=== PATIENT | male | born 1980 | race Hispanic/Latino ===

== ENCOUNTER 2018-06-10 15:51 | Emergency (ER) | payer BC ==
[~2018-06-10] VITALS: Ht 167.6 cm; Wt 111.1 kg
[2018-06-10] MEDS ORDERED: ALBUTEROL/IPRATROPIUM 3 ML NEB NEB ONE (16:15)
[2018-06-10] MEDS ORDERED: PREDNISONE 20 MG TAB PO NR (16:15)
--- NOTE | 2018-06-10 17:12 | Diagnostic Imaging Report ---
Frontal and lateral views of the chest. HISTORY: Cough, high blood pressure COMPARISON: None available. DISCUSSION: Lungs: Low lung volumes result in bibasilar vascular crowding, accentuation of the pulmonary interstitial markings, central pulmonary vasculature, and the cardiac silhouette. Allowing for these limitations, the findings are as follows: Increased peribronchial interstitial markings. No evidence of a consolidative pneumonia or pulmonary alveolar edema. Pleura: No pleural effusion or pneumothorax. Heart and mediastinum: The cardiomediastinal silhouette appears unremarkable. Bones and soft tissues: Appear unremarkable. IMPRESSION: 1. Findings which could be seen in setting of a nonspecific bronchitis. 2. No consolidative pneumonia. Signed by: Dr. Rickie Molina D.O., M.M.M. on 06/10/2018 5:09 PM
[2018-06-10] MEDS ORDERED: ACETAMINOPHEN 325 MG TAB PO NR (18:09)
[2018-06-10 18:22] VITALS: BP 135/78
== END 2018-06-10 18:23 | disposition home or self-care (01) ==
LOC: ER 15:51
DX: R05 Cough (principal); J40 Bronchitis, not specified as acute or chronic
CPT/HCPCS: 71046; 99283; J7512